=== PATIENT | male | born 1975 | race Caucasian/White ===

== ENCOUNTER 2018-01-16 21:02 | Emergency (ER) | payer BC ==
--- NOTE | 2018-01-16 21:51 | ER Document Report ---
ED Medical Screen (RME) - General Chief Complaint: L flank pain/ abdominal pain Stated Complaint: ABDOMINAL PAIN Time Seen by Provider: 01/16/18 21:49 TRAVEL OUTSIDE OF THE [place]. IN LAST 30 DAYS: No - HPI Notes: 01/16/18 21:50 Patient is a 42-year-old male with a history of hypertension, former smoker, right renal cyst versus mass who presents to the ED complaining of right lower quadrant pain 6 hours that has been constant and may radiate around the right hip area towards his back. Patient states that he woke up last night with back pain, left flank pain, and hematuria. Patient states that he was at [facility] emergency department this morning and had a CT scan performed that was reported to be unremarkable per patient. Patient states that he did have a pain similar to this 2 years ago in the same area. No other concerns or complaints. He is still eating and drinking without any difficulties. He is urinating normally and having normal bowel movement. Denies any headache, fever, URI, sore throat , chest pain, palpitations, syncope, cough, shortness of breath, wheeze, dyspnea , nausea/vomiting/diarrhea, urinary retention, dysuria, continued hematuria, loss of control of bowel or bladder, numbness/tingling, saddle anesthesia, muscle paralysis/weakness, or rash. I have treated and performed a rapid initial assessment of this patient. A comprehensive ED assessment and evaluation of the patient, analysis of test results and completion of medical decision making process will be conducted by additional ED providers. PHYSICAL EXAMINATION: GENERAL: Well-appearing, well-nourished and in no acute distress. A&Ox4. Answers questions appropriately. LUNGS: Breath sounds clear to auscultation bilaterally and equal. No wheezes rales or rhonchi. HEART: Regular rate and rhythm without murmurs, rubs, gallops. Abd: bowel sounds present. unable to adequately assess with pt in a chair. Extremities: No cyanosis, clubbing, or edema b/l. NEUROLOGICAL: Normal speech, normal gait. PSYCH: Normal mood, normal affect. - Related Data Allergies/Adverse Reactions: Penicillins Allergy (Severe, Verified 12/21/15 11:12) Anaphylaxis all "cillians" Allergy (Severe, Uncoded 12/21/15 11:12) Anaphylaxis Past Medical History - Past Medical History Cardiac Medical History: Reports: Hx Hypertension - borderline Denies: Hx Coronary Artery Disease, Hx Heart Attack Pulmonary Medical History: Denies: Hx Asthma, Hx Bronchitis, Hx COPD, Hx Pneumonia Neurological Medical History: Denies: Hx Cerebrovascular Accident, Hx Seizures Musculoskeltal Medical History: Denies Hx Arthritis, Reports Hx Musculoskeletal Deformity, Reports Hx Musculoskeletal Trauma Past Surgical History: Reports: Hx Orthopedic Surgery - knee x3 - Immunizations Immunizations up to date: Yes Hx Diphtheria, Pertussis, Tetanus Vaccination: No Physical Exam - Vital signs Vitals: Temp Pulse Resp BP Pulse Ox 97.8 F 78 18 162/111 H 96 01/16/18 21:37 01/16/18 21:37 01/16/18 21:37 01/16/18 21:37 01/16/18 21:37 Course - Vital Signs Vital signs: Temp Pulse Resp BP Pulse Ox 97.8 F 78 18 162/111 H 96 01/16/18 21:37 01/16/18 21:37 01/16/18 21:37 01/16/18 21:37 01/16/18 21:37
[2018-01-16] MEDS ORDERED: KETOROLAC TROMETHAMINE INJ/PF 30 MG/1 ML SDV IV ONE (22:10)
[2018-01-16 23:02] LABS: ABSOLUTE BASOPHILS # (AUTO) 0.1 10^3/uL (0.0-0.2); ABSOLUTE EOSINOPHILS # (AUTO) 0.4 10^3/uL (0.0-0.6); ABSOLUTE LYMPHOCYTES (AUTO) 2.5 10^3/uL (0.5-4.7); ABSOLUTE NEUT (AUTO) 9.9 10^3/uL (1.7-8.2); EOSINOPHILS % (AUTO) 2.8 % (0-6); HEMOGLOBIN 16.3 g/dL (13.5-17.0); LYMPHOCYTES % (AUTO) 18.3 % (13-45); MEAN CORPUSCULAR HEMOGLOBIN 28.1 pg (27.0-33.4); MEAN CORPUSCULAR HGB CONC 33.9 g/dL (32.0-36.0); MEAN CORPUSCULAR VOLUME 83 fl (80-97); MONOCYTES % (AUTO) 7.2 % (3-13); PLATELET COUNT 294 10^3/uL (150-450); RED CELL DISTRIBUTION WIDTH 13.1 % (11.5-14.0); SEGMENTED NEUTROPHILS % (AUTO) 70.7 % (42-78); TOTAL CELLS COUNTED % (AUTO) 100 %
[2018-01-16 23:14] LABS: ALANINE AMINOTRANSFERASE 62 U/L (21-72); ALBUMIN 4.8 g/dL (3.5-5.0); ALKALINE PHOSPHATASE 80 U/L (38-126); ANION GAP 15 (5-19); ASPARTATE AMINO TRANSFERASE 36 U/L (17-59); BILIRUBIN,DIRECT 0.3 mg/dL (0.0-0.4); BILIRUBIN,TOTAL 0.4 mg/dL (0.2-1.3); BLOOD UREA NITROGEN 26 mg/dL (7-20); CARBON DIOXIDE 25 mmol/L (22-30); CHLORIDE 103 mmol/L (98-107); GLUCOSE 135 mg/dL (75-110); POTASSIUM 4.2 mmol/L (3.6-5.0); SODIUM 142.6 mmol/L (137-145); TOTAL PROTEIN 7.2 g/dL (6.3-8.2)
[2018-01-16 23:47] LABS: APPEARANCE,URINE CLEAR; BILIRUBIN,URINE NEGATIVE (NEGATIVE); CALCIUM OXALATE CRYSTALS,URINE MODERATE /HPF; COLOR,URINE YELLOW; GLUCOSE, URINE NEGATIVE (NEGATIVE); KETONES,URINE NEGATIVE (NEGATIVE); LEUKOCYTE ESTERASE,URINE NEGATIVE (NEGATIVE); NITRITE,URINE NEGATIVE (NEGATIVE); PROTEIN,URINE NEGATIVE (NEGATIVE); URINE SPECIFIC GRAVITY 1.015; UROBILINOGEN,URINE NEGATIVE mg/dL (<2.0)
[2018-01-16] MEDS ORDERED: KETOROLAC TROMETHAMINE INJ/PF 30 MG/1 ML SDV IM ONE (23:50)
--- NOTE | 2018-01-17 00:57 | ER Document Report ---
ED General <YEIMI MURRAY - Last Filed: 01/17/18 02:15> - General Mode of Arrival: Ambulatory Information source: Patient TRAVEL OUTSIDE OF THE [place] IN LAST 30 DAYS: No <FILIPEFRANK CARTWRIGHT - Last Filed: 01/17/18 05:26> - General Chief Complaint: L flank pain/ abdominal pain Stated Complaint: ABDOMINAL PAIN Time Seen by Provider: 01/16/18 21:49 Notes: Patient is a 42 year old male with a history of hypertension, right renal cyst versus mass presents to the emergency department complaining of right lower quadrant pain onset approximately 8 hours ago. Patient states the pain has been constant and radiates into the right side of his lower back. Patient states he woke up with 2 night ago with left flank pain and hematuria and proceeded to go to [place] emergency department due to these symptoms. He reports a CT scan without contrast was performed and was reported unremarkable. Patient states he was then referred to a urologist. Patient denies a history of kidney stones or testicular pain. (FRANK DENT) - Related Data Allergies/Adverse Reactions: Penicillins Allergy (Severe, Verified 12/21/15 11:12) Anaphylaxis all "cillians" Allergy (Severe, Uncoded 12/21/15 11:12) Anaphylaxis Past Medical History - General Information source: Patient - Social History Smoking Status: Former Smoker Cigarette use (# per day): No Chew tobacco use (# tins/day): No Smoking Education Provided: No Frequency of alcohol use: Occasional Family History: Arthritis - Past Medical History Cardiac Medical History: Reports: Hx Hypertension - borderline Musculoskeltal Medical History: Reports Hx Musculoskeletal Deformity, Reports Hx Musculoskeletal Trauma Past Surgical History: Reports: Hx Orthopedic Surgery - knee x3 - Immunizations Immunizations up to date: Yes Hx Diphtheria, Pertussis, Tetanus Vaccination: No <FRANK DENT - Last Filed: 01/17/18 05:26> Review of Systems - Review of Systems Constitutional: No symptoms reported EENT: No symptoms reported Cardiovascular: No symptoms reported Respiratory: No symptoms reported Gastrointestinal: See HPI, Abdominal pain Genitourinary: See HPI, Flank pain, Hematuria Male Genitourinary: No symptoms reported. denies: Testicular pain Musculoskeletal: See HPI Skin: No symptoms reported Hematologic/Lymphatic: No symptoms reported Neurological/Psychological: No symptoms reported -: Yes All other systems reviewed and negative <FRANK DENT - Last Filed: 01/17/18 05:26> Physical Exam - General General appearance: Appears well, Alert In distress: None - HEENT Head: Normocephalic, Atraumatic Eyes: Normal Conjunctiva: Normal Extraocular movements intact: Yes Pupils: PERRL Neck: Normal - Respiratory Respiratory status: No respiratory distress Chest status: Nontender Breath sounds: Normal Chest palpation: Normal - Cardiovascular Rhythm: Regular Heart sounds: Normal auscultation Murmur: No Friction rub: No Gallop: None auscultated - Abdominal Inspection: Normal Distension: No distension Bowel sounds: Normal Tenderness: Tender - Tender to palpation to the right lateral abdomen and RUQ Organomegaly: No organomegaly - Back Back: CVA tenderness - CVA tenderness to percussion on the right - Extremities General upper extremity: Normal ROM General lower extremity: Normal ROM - Neurological Neuro grossly intact: Yes Cognition: Normal Orientation: AAOx4 [place] Coma Scale Eye Opening: Spontaneous Reese Coma Scale Verbal: Oriented [place] Coma Scale Motor: Obeys Commands [place] Coma Scale Total: 15 Speech: Normal - Psychological Associated symptoms: Normal affect, Normal mood - Skin Skin Temperature: Warm Skin Moisture: Dry Skin Color: Normal <FRANK DENT - Last Filed: 01/17/18 05:26> - Vital signs Vitals: Temp Pulse Resp BP Pulse Ox 97.8 F 78 18 162/111 H 96 01/16/18 21:37 01/16/18 21:37 01/16/18 21:37 01/16/18 21:37 01/16/18 21:37 Course - Laboratory Result Diagrams: 01/16/18 22:30 01/16/18 22:30 <YEIMI MURRAY - Last Filed: 01/17/18 02:15> - Laboratory Result Diagrams: 01/16/18 22:30 01/16/18 22:30 <FRANK DENT - Last Filed: 01/17/18 05:26> - Re-evaluation Re-evalutation: 01/17/18 02:15 Patient's medical records were eventually sent from [facility], the CT scan showed a 3-4 mm distal right ureteral stone with hydronephrosis and hydroureter. The patient handed me his discharge instructions which gave a diagnosis of hematuria without explanation. The radiologist report was transcribed less than 40 minutes after the scan was done. Patient reports he got considerable relief of discomfort from the Toradol injection here. He did receive Vicodin dispensed pack and prescription for 10 Percocet this morning, however he states that pain medicine like that makes him feel queasy and he prefers not to take it. He is open to the idea of taking 800 mg Motrin every 8 hours since the Toradol worked so well. (YEIMI MURRAY) - Vital Signs Vital signs: Temp Pulse Resp BP Pulse Ox 98 F 69 16 154/87 H 98 01/17/18 02:35 01/17/18 02:35 01/17/18 02:35 01/17/18 02:35 01/17/18 02:35 - Laboratory Laboratory results interpreted by me: 01/16/18 01/16/18 01/16/18 22:30 22:30 22:30 WBC 14.0 H RBC 5.80 H Absolute Neutrophils 9.9 H BUN 26 H Glucose 135 H Urine Blood LARGE H Discharge <YEIMI MURRAY - Last Filed: 01/17/18 02:15> <FRANK DENT - Last Filed: 01/17/18 05:26> - Discharge Clinical Impression: Renal colic on right side Condition: Stable Disposition: HOME, SELF-CARE Additional Instructions: Kidney Stone You are passing or have passed a kidney stone. These stones are usually due to increased calcium or uric acid concentrations in your urine. Stones within the kidney itself are not painful. The pain occurs as the stone leaves the kidney to pass down the long tube, called the ureter, leading to the bladder. If the stone is small, it will usually pass by itself. Most patients can pass the stone at home. You will usually receive medications for pain, nausea or vomiting, and sometimes a medication to assist in passing the kidney stone. However, if the pain is very severe or if vomiting prevents you from taking oral pain medications, you may need to return for further treatment. Drink three or four quarts of fluids per day. You will be given pain medication (if needed) and urine strainers. Strain all your urine to see if the stone passes. If your doctor has asked you to bring the stone in for analysis, return with the stone once it has passed. Return if pain or vomiting become severe, if you develop a high fever, if you are unable to pass your urine, or if other unusual symptoms occur. Take Motrin 800 mg every 8 hours for pain. Take your prescribed pain medication if the pain is not controlled. Take the Flomax as prescribed to see if it will help you pass the stone. Drink lots of fluids throughout the day and evening. Strain your urine. Follow-up with the urologist you were referred to on [facility]. RETURN TO THE EMERGENCY ROOM IF ANY NEW OR WORSENING SYMPTOMS. Prescriptions: Tamsulosin HCl [Flomax 0.4 mg Cap.sr] 0.4 mg PO DAILY #7 cap.sr.[id number] Scribe Attestation: 01/17/18 01:36 I personally performed the services described in the documentation, reviewed and edited the documentation which was dictated to the scribe in my presence, and it accurately records my words and actions. (YEIMI MURRAY) Scribe Documentation - Scribe Written by Shailesh:: Shailesh Painting, 01/17/2018 01:00 acting as scribe for :: Maximo <FRANK DENT - Last Filed: 01/17/18 05:26>
[2018-01-17] MEDS ORDERED: TAMSULOSIN HCL 0.4 MG CAP.SR.24H PO ONE (02:19)
[2018-01-17 03:47] VITALS: BP 154/87
== END 2018-01-17 02:35 | disposition home or self-care (01) ==
LOC: ER 21:02
DX: N23 Unspecified renal colic (principal); I10 Essential (primary) hypertension; Z87.891 Personal history of nicotine dependence; Z88.0 Allergy status to penicillin
CPT/HCPCS: 99284; 96372; 36415; 85025; 80053; 81001; J1885

== ENCOUNTER 2020-05-08 06:08 | Observation (INO) | payer BC, OTHER ==
[2020-05-08 06:33] LABS: ABSOLUTE BASOPHILS # (AUTO) 0.1 10^3/uL (0.0-0.2); ABSOLUTE EOSINOPHILS # (AUTO) 0.2 10^3/uL (0.0-0.6); ABSOLUTE LYMPHOCYTES (AUTO) 1.5 10^3/uL (0.5-4.7); ABSOLUTE MONOCYTES (AUTO) 0.5 10^3/uL (0.1-1.4); ABSOLUTE NEUT (AUTO) 6.3 10^3/uL (1.7-8.2); BASOPHILS % (AUTO) 1.3 % (0-2); EOSINOPHILS % (AUTO) 2.7 % (0-6); HEMATOCRIT 45.3 % (37.9-51.0); HEMOGLOBIN 15.6 g/dL (13.5-17.0); LYMPHOCYTES % (AUTO) 17.5 % (13-45); MEAN CORPUSCULAR HEMOGLOBIN 28.8 pg (27.0-33.4); MEAN CORPUSCULAR HGB CONC 34.4 g/dL (32.0-36.0); MEAN CORPUSCULAR VOLUME 84 fl (80-97); MONOCYTES % (AUTO) 5.9 % (3-13); PLATELET COUNT 248 10^3/uL (150-450); RED BLOOD COUNT 5.41 10^6/uL (4.35-5.55); RED CELL DISTRIBUTION WIDTH 13.5 % (11.5-14.0); SEGMENTED NEUTROPHILS % (AUTO) 72.6 % (42-78); TOTAL CELLS COUNTED % (AUTO) 100 %; WHITE BLOOD COUNT 8.7 10^3/uL (4.0-10.5)
[2020-05-08] MEDS ORDERED: RINGERS SOLUTION,LACTATED 1,000 ML IV ONE (06:51)
[2020-05-08] MEDS ORDERED: HYDROMORPHONE HCL INJ/PF 2 MG/ML AMPULE IV ONE (06:53)
[2020-05-08] MEDS ORDERED: ONDANSETRON HCL INJ/PF 4 MG/2 ML SDV IV ONE (06:53)
[2020-05-08 06:57] LABS: ALBUMIN 4.4 g/dL (3.5-5.0); ALKALINE PHOSPHATASE 70 U/L (38-126); ANION GAP 8 (5-19); ASPARTATE AMINO TRANSFERASE 28 U/L (17-59); BILIRUBIN,DIRECT 0.3 mg/dL (0.0-0.4); BILIRUBIN,TOTAL 0.5 mg/dL (0.2-1.3); BLOOD UREA NITROGEN 20 mg/dL (7-20); CALCIUM 9.4 mg/dL (8.4-10.2); CARBON DIOXIDE 26 mmol/L (22-30); CHLORIDE 105 mmol/L (98-107); GLUCOSE 187 mg/dL (75-110); POTASSIUM 4.2 mmol/L (3.6-5.0); TOTAL PROTEIN 6.7 g/dL (6.3-8.2)
[2020-05-08 07:11] LABS: TROPONIN I < 0.012 ng/mL
[2020-05-08 07:26] LABS: NT PRO BNP 38 pg/mL (<125)
--- NOTE | 2020-05-08 09:19 | ER Document Report ---
Entered by HONG GASCA SCRIBE 05/08/20 0639 Acting as scribe for:RACHEL WEI MD ED General - General Stated Complaint: DIFFICULT IN BREATHING Time Seen by Provider: 05/08/20 06:15 Mode of Arrival: Medic Information source: Patient, Emergency Med Personnel Notes: This 44 year old male patient brought in by EMS presents to the ED today with complaints of left-sided chest pain with associated shortness of breath that woke him up around 0400 this morning. Patient describes the pain as a pressure that radiates to his back. He also reports bilateral upper abdominal pain with nausea and x1 episode of dry heaving. Patient states that the pain persisted after he took a shower, so he called EMS. Patient received x2 sprays of Nitroglycerin and was started on a Nitro gtt at 10 mcg/min without pain relief. Patient was also placed on CPAP. Patient reports that he had a cardiac workup about x2 months ago and had a negative echo and stress test. He also had a gallbladder work up about x1 year ago and was told that it was nonsurgical. Patient is a former smoker and has a history of HTN. He his medically noncompliant with his blood pressure medications (Metoprolol and Losartan), last dose was x2 days ago. TRAVEL OUTSIDE OF THE [place] IN LAST 30 DAYS: No - Related Data Allergies/Adverse Reactions: Penicillins Allergy (Severe, Verified 12/21/15 11:12) Anaphylaxis all "cillians" Allergy (Severe, Uncoded 12/21/15 11:12) Anaphylaxis Past Medical History - General Information source: Patient, [facility] Records - Social History Smoking Status: Former Smoker Cigarette use (# per day): No Chew tobacco use (# tins/day): No Smoking Education Provided: No Frequency of alcohol use: None Drug Abuse: None Family History: Reviewed & Not Pertinent, Arthritis, CAD Patient has suicidal ideation: No Patient has homicidal ideation: No - Past Medical History Cardiac Medical History: Reports: Hx Hypertension - borderline Musculoskeletal Medical History: Reports Hx Musculoskeletal Deformity, Reports Hx Musculoskeletal Trauma Past Surgical History: Reports: Hx Orthopedic Surgery - right knee x3, right shoulder - Immunizations Immunizations up to date: Yes Hx Diphtheria, Pertussis, Tetanus Vaccination: No Review of Systems - Review of Systems Constitutional: No symptoms reported EENT: No symptoms reported Cardiovascular: See HPI, Chest pain Respiratory: See HPI, Short of breath Gastrointestinal: See HPI, Abdominal pain, Nausea, Vomiting Genitourinary: No symptoms reported Male Genitourinary: No symptoms reported Musculoskeletal: No symptoms reported Skin: No symptoms reported Hematologic/Lymphatic: No symptoms reported Neurological/Psychological: No symptoms reported -: Yes All other systems reviewed and negative Physical Exam - Vital signs Vitals: Resp Pulse Ox 25 H 100 05/08/20 06:08 05/08/20 06:08 - General General appearance: Alert In distress: Mild - HEENT Head: Normocephalic, Atraumatic Eyes: Normal Extraocular movements intact: Yes Pupils: PERRL Ears: Normal Mouth/Lips: Normal Mucous membranes: Normal Pharynx: Normal - Respiratory Respiratory status: No respiratory distress - 100% on 2L via NC Chest status: Nontender Breath sounds: Normal Chest palpation: Normal - Cardiovascular Rhythm: Regular Heart sounds: Normal auscultation, S1 appreciated, S2 appreciated Murmur: No Friction rub: No Gallop: None auscultated - Abdominal Inspection: Obese Distension: No distension Bowel sounds: Normal Tenderness: Tender - Bilateral upper quadrant tenderness to palpation, right worse than left, Mitchell's sign Organomegaly: No organomegaly - Back Back: Normal, Nontender - Extremities General upper extremity: Normal inspection General lower extremity: Normal inspection. No: Edema - Neurological Neuro grossly intact: Yes Orientation: AAOx4 Reese Coma Scale Eye Opening: Spontaneous [place] Coma Scale Verbal: Oriented Reese Coma Scale Motor: Obeys Commands [place] Coma Scale Total: 15 - Psychological Associated symptoms: Normal affect, Normal mood - Skin Skin Temperature: Warm Skin Moisture: Dry Skin Color: Normal Course - Re-evaluation Re-evalutation: 05/08/20 14:54 Patient resting comfortably after medications for pain. - Vital Signs Vital signs: Temp Pulse Resp BP Pulse Ox 98.0 F 64 12 148/81 H 97 05/08/20 06:21 05/08/20 06:21 05/08/20 12:59 05/08/20 12:00 05/08/20 12:59 05/08/20 14:55 Vital signs improved see chart above blood pressure is 148/81. - Laboratory Result Diagrams: 05/08/20 06:17 05/08/20 06:17 Laboratory results interpreted by me: 05/08/20 06:17 Glucose 187 H Laboratories except for glucose of 187 did not show any remarkable elevations troponin was flat at 0.122. Patient had normal CBC and in chemistries. 05/08/20 1 - Diagnostic Test Radiology reviewed: Reports reviewed Radiology results interpreted by me: 05/08/20 11:15 Gallbladder U/S reveals adenomyonatosis without any gallstones, thickened gallbladder wall, and possible acalculous cholecystitis. CT of the abdomen/pelvis reveals acute cholecystitis and gallstones, which was not seen on the [place] 05/08/20 14:57 Chest x-ray shows no acute process crowding in the bases bilateral consistent with low diaphragmatic excursion with his deep breath. - EKG Interpretation by Me Additional EKG results interpreted by me: 05/08/20 14:58 Twelve-lead EKG shows an old inferior SC with Q waves. Sinus bradycardia rate of 47 with - Consults Oswaldo Miranda Time consulted: 11:26 Reason for consultation: 05/08/20 11:27 Acute cholecystitis with gallstones Consulted provider: will come to ER Discharge - Discharge Clinical Impression: Nausea, Acute calculous cholecystitis Abdominal pain Qualifiers: Abdominal location: right upper quadrant Qualified Code(s): R10.11 - Right upper quadrant pain Chest pain Qualifiers: Chest pain type: unspecified Qualified Code(s): R07.9 - Chest pain, unspecified Condition: Good Disposition: ADMITTED INPATIENT Admitting Provider: Miyaist Urvashi Miranda Unit Admitted: Surgical Floor I personally performed the services described in the documentation, reviewed and edited the documentation which was dictated to the scribe in my presence, and it accurately records my words and actions.
[2020-05-08 10:19] LABS: APPEARANCE,URINE CLEAR; BILIRUBIN,URINE NEGATIVE (NEGATIVE); COLOR,URINE YELLOW; GLUCOSE, URINE NEGATIVE (NEGATIVE); KETONES,URINE NEGATIVE (NEGATIVE); LEUKOCYTE ESTERASE,URINE NEGATIVE (NEGATIVE); NITRITE,URINE NEGATIVE (NEGATIVE); PROTEIN,URINE NEGATIVE (NEGATIVE); URINE SPECIFIC GRAVITY 1.023; UROBILINOGEN,URINE NEGATIVE mg/dL (<2.0)
[2020-05-08 10:49] LABS: URINE AMPHETAMINES SCREEN NEGATIVE; URINE BARBITURATES SCREEN NEGATIVE; URINE BENZODIAZEPINES SCREEN NEGATIVE; URINE COCAINE SCREEN NEGATIVE; URINE MARIJUANA (THC) SCREEN NEGATIVE; URINE METHADONE SCREEN NEGATIVE; URINE PHENCYCLIDINE SCREEN NEGATIVE
--- NOTE | 2020-05-08 15:31 | EKG REPORT ---
SEVERITY:- ABNORMAL ECG - SINUS BRADYCARDIA PROBABLE INFERIOR INFARCT, OLD : Confirmed by: Shan Esqueda MD 08-May-2020 15:30:34
[2020-05-08] MEDS ORDERED: DEXTROSE 50%-WATER 25 GM/50 ML DISP.SYRIN IV PRN ×2 (15:54)
[2020-05-08] MEDS ORDERED: DEXTROSE 5%-LACTATED RINGERS 1,000 ML IV PRN (15:54)
[2020-05-08] MEDS ORDERED: DEXTROSE 40% GEL 15 GM TUBE PO PRN ×2 (15:54)
[2020-05-08] MEDS ORDERED: GLUCAGON,HUMAN RECOMB 1 MG INJ SUBCUT PRN (15:54)
--- NOTE | 2020-05-08 16:05 | PDOC H&P ---
History of Present Illness Admission Date/PCP: 05/08/20 11:56 Patient complains of: Abdominal pains History of Present Illness: WALLACE RODRIGUEZ is a 44 year old male with history of hypertension woke up this morning at 4 AM with severe right upper quadrant pains radiating to the back associated nausea. He went to ED where CT scan of the abdomen showed gallstones and ultrasound also showed gallstones. No definite evidence of cholecystitis. Patient however has severe right upper quadrant abdominal pains with elevated white count. Denies any fever no chills. He did have baked chicken for dinner which he thinks was not that greasy. Past Medical History Cardiac Medical History: Reports: Hypertension - borderline Denies: Coronary Artery Disease, Myocardial Infarction Pulmonary Medical History: Denies: Asthma, Bronchitis, Chronic Obstructive Pulmonary Disease (COPD), Pneumonia Neurological Medical History: Denies: Seizures Musculoskeltal Medical History: Denies: Arthritis Psychiatric Medical History: Denies: Depression Hematology: Denies: Anemia Past Surgical History Past Surgical History: Reports: Orthopedic Surgery - right knee x3, right shoulder Social History Smoking Status: Former Smoker Electronic Cigarette use?: No Frequency of Alcohol Use: Rare Hx Recreational Drug Use: No Hx Prescription Drug Abuse: No Family History Family History: Reviewed & Not Pertinent, Arthritis, CAD Parental Family History Reviewed: Yes Children Family History Reviewed: No Sibling(s) Family History Reviewed.: No Medication/Allergy Home Medications: Losartan/Hydrochlorothiazide [Losartan-Hctz 50-12.5 mg Tab] 1 tab PO DAILY 05/08/20 Metoprolol Tartrate [Lopressor 50 mg Tablet] 50 mg PO Q12 05/08/20 Allergies/Adverse Reactions: Penicillins Allergy (Severe, Verified 12/21/15 11:12) Anaphylaxis all "cillians" Allergy (Severe, Uncoded 12/21/15 11:12) Anaphylaxis Review of Systems Constitutional: PRESENT: other - Denies fever no chills Physical Exam Vital Signs: Temp Pulse Resp BP Pulse Ox 98.0 F 64 12 148/81 H 97 05/08/20 06:21 05/08/20 06:21 05/08/20 12:59 05/08/20 12:00 05/08/20 12:59 Intake & Output 05/07/20 05/08/20 05/09/20 06:59 06:59 06:59 Intake Total 1000 Balance 1000 Weight 108.862 kg General appearance: PRESENT: mild distress, obese Eye exam: PRESENT: conjunctiva pink Mouth exam: PRESENT: moist Neck exam: PRESENT: full ROM Respiratory exam: PRESENT: clear to auscultation krystal Cardiovascular exam: PRESENT: RRR Pulses: PRESENT: normal radial pulses Vascular exam: PRESENT: normal capillary refill GI/Abdominal exam: PRESENT: soft, tenderness - Right upper quadrant Rectal exam: PRESENT: deferred Extremities exam: PRESENT: full ROM Musculoskeletal exam: PRESENT: full ROM Neurological exam: PRESENT: alert, oriented to person, oriented to place, oriented to time, oriented to situation Psychiatric exam: PRESENT: appropriate affect Skin exam: PRESENT: normal color, warm Results Laboratory Results: 05/08/20 06:17 05/08/20 06:17 05/08/20 05/08/20 05/08/20 06:17 06:17 06:17 WBC 8.7 RBC 5.41 Hgb 15.6 Hct 45.3 MCV 84 MCH 28.8 MCHC 34.4 RDW 13.5 Plt Count 248 Seg Neutrophils % 72.6 Sodium 138.9 Potassium 4.2 Chloride 105 Carbon Dioxide 26 Anion Gap 8 BUN 20 Creatinine 0.82 Est GFR ( Amer) > 60 Glucose 187 H Lactic Acid Calcium 9.4 Total Bilirubin 0.5 AST 28 Alkaline Phosphatase 70 Total Protein 6.7 Albumin 4.4 Amylase Lipase 100.6 Urine Color Urine Appearance Urine pH Ur Specific [place] Urine Protein Urine Glucose (UA) Urine Ketones Urine Blood Urine Nitrite Ur Leukocyte Esterase Urine WBC (Auto) Urine RBC (Auto) 05/08/20 05/08/20 05/08/20 06:17 06:42 10:04 WBC RBC Hgb Hct MCV MCH MCHC RDW Plt Count Seg Neutrophils % Sodium Potassium Chloride Carbon Dioxide Anion Gap BUN Creatinine Est GFR ( Amer) Glucose Lactic Acid 1.1 Calcium Total Bilirubin AST Alkaline Phosphatase Total Protein Albumin Amylase 50 Lipase Urine Color YELLOW Urine Appearance CLEAR Urine pH 5.0 Ur Specific [place] 1.023 Urine Protein NEGATIVE Urine Glucose (UA) NEGATIVE Urine Ketones NEGATIVE Urine Blood NEGATIVE Urine Nitrite NEGATIVE Ur Leukocyte Esterase NEGATIVE Urine WBC (Auto) 2 Urine RBC (Auto) 0 05/08/20 05/08/20 06:17 10:04 Troponin I < 0.012 < 0.012 NT-Pro-B Natriuret Pep 38 Assessment & Plan - Diagnosis (1) Abdominal pain Qualifiers: Abdominal location: right upper quadrant Qualified Code(s): R10.11 - Right upper quadrant pain Is this a current diagnosis for this admission?: Yes (2) Acute calculous cholecystitis Is this a current diagnosis for this admission?: Yes (3) Nausea Is this a current diagnosis for this admission?: Yes - Time Time Spent: 30 to 50 Minutes Anticipated Discharge Disposition: Home, Self Care Anticipated Discharge Timeframe: within 72 hours - Inpatient Certification Medical Necessity: Need for Pain Control, Need for IV Antibiotics, Need for Surgery - Plan Summary Plan Summary: 44-year-old male with right upper quadrant pain since 4:00 this morning associated with nausea. CT scan showed gallstones as well as an ultrasound. His white count was elevated and is tender in the right upper quadrant. There is a history of hypertension on losartan and metoprolol. He is being followed by Dr. Benson. Plans: Start IV antibiotics and hydrate. For laparoscopic cholecystectomy tomorrow by Dr. Fabian.
[2020-05-08] MEDS ORDERED: HYDROMORPHONE HCL INJ/PF 2 MG/ML AMPULE IV PRN (16:14)
[2020-05-08] MEDS: CIPROFLOXACIN 400 MG/D5W RTU 400 MG/200 ML RTUPB IV SCH (17:35)
--- NOTE | 2020-05-08 17:42 | RADIOLOGY REPORT (SQ) ---
COMPLETED DATE/TME: 05/08/2020 00:00 CLINICAL HISTORY: 44 years, Male, ruq pain, radiating to back EXAM: CT abdomen and pelvis with contrast. TECHNIQUE: Contiguous axial CT images of the abdomen and pelvis. Intravenous contrast: Present. Oral contrast: Present. DLP 2010 mGy-cm. This exam was performed according to our departmental dose-optimization program, which includes automated exposure control, adjustment of the mA and/or kV according to patient size and/or use of iterative reconstruction technique. COMPARISON: 12/19/2015. FINDINGS: Lower chest: Partially imaged. Lung bases: Unremarkable. Cardiac apex: Unremarkable. Solid abdominal viscera: Liver: Fatty infiltration. Gallbladder: Contains two stones near the gallbladder neck which measure up to 5 mm in size and a 4 mm stone within the cystic duct. The gallbladder brooks appear hyperemic and thickened with mild adjacent stranding. Pancreas: Unremarkable. Spleen: Unremarkable. Adrenal glands: Unremarkable. Right kidney: No hydronephrosis. 1 cm cyst. Left kidney: No hydronephrosis. 1.3 cm cyst. Urinary bladder: Unremarkable. Abdominal aorta: Unremarkable. Peritoneal: Free fluid: None. Free air: None. Other: No pathologic sized lymph nodes in the upper abdomen. Bowel: Stomach: Unremarkable. Small bowel: Unremarkable. Appendix: Unremarkable. Colon: Unremarkable. Rectum: Unremarkable. Prostate: Unremarkable. Bones: Unremarkable. IMPRESSION: Acute calculus cholecystitis with a 4 mm stone near the cystic duct. Fatty liver. TECHNICAL DOCUMENTATION: Quality ID # 436: Final reports with documentation of one or more dose reduction techniques (e.g., Automated exposure control, adjustment of the mA and/or kV according to patient size, use of iterative reconstruction technique) copyright 2011 [employer]- All Rights Reserved
--- NOTE | 2020-05-08 17:52 | RADIOLOGY REPORT (SQ) ---
EXAM DESCRIPTION: [facility]: XR CHEST 1 VIEW CLINICAL HISTORY: 44 years Male; chest pain; COMPARISON: None. FINDINGS: Lungs: Lungs are clear, with no focal infiltrate, pneumothorax, or pleural effusion. Mediastinum: Mediastinum is within normal limits for this positioning. Bones: Bony structures are unremarkable. IMPRESSION: 1. No acute pulmonary findings.
[2020-05-08] MEDS ORDERED: PIPERACILLIN SODIUM/TAZOBACTAM 3.375 GM in NORMAL SALINE 100 ML IV SCH (18:00)
--- NOTE | 2020-05-08 18:00 | RADIOLOGY REPORT (SQ) ---
EXAM DESCRIPTION: [facility]: XR CHEST 1 VIEW CLINICAL HISTORY: 44 years Male; shortness of breath; FINDINGS: AP chest at 0756. Since earlier this morning at 0655, lungs remain well-inflated. No focal consolidation, effusion, or pneumothorax. Mediastinum is unchanged. IMPRESSION: 1. No significant change 2. No focal infiltrates
[2020-05-08] MEDS: METRONIDAZOLE 500 MG/NS RTU 500 MG/100 ML RTUPB IV SCH (23:10)
[2020-05-09] MEDS: METRONIDAZOLE 500 MG/NS RTU 500 MG/100 ML RTUPB IV SCH ×2 (05:14→14:36)
[2020-05-09] MEDS: CIPROFLOXACIN 400 MG/D5W RTU 400 MG/200 ML RTUPB IV SCH ×2 (05:14→18:24)
[2020-05-09] MEDS ORDERED: BUPIVACAINE HCL 0.5%-EPI 1:200000 INJ/PF 30 ML VIAL ONE (07:48)
[2020-05-09] MEDS ORDERED: MORPHINE SULFATE 10 MG/ML INJ ONE (07:51)
[2020-05-09] MEDS ORDERED: FENTANYL CITRATE INJ/PF 100 MCG/2 ML AMPUL ONE (07:51)
[2020-05-09] MEDS ORDERED: PROPOFOL INJ 200 MG/20 ML VIAL IV ONE (07:51)
[2020-05-09] MEDS ORDERED: DEXMEDETOMIDINE INJ 80 MCG/20 ML VIAL IV ONE (07:51)
[2020-05-09] MEDS ORDERED: SUGAMMADEX SODIUM 200 MG/2 ML SDV IV ONE (07:51)
[2020-05-09] MEDS ORDERED: MIDAZOLAM 2 MG/2 ML INJ ONE (07:51)
[2020-05-09] MEDS ORDERED: LIDOCAINE 2% INJ-PF (20 MG/ML) 10 ML AMPUL ONE (07:53)
[2020-05-09] MEDS ORDERED: SUCCINYLCHOLINE CHLORIDE INJ 200 MG/10 ML VIAL ONE (08:07)
[2020-05-09] MEDS ORDERED: NEOSTIGMINE METHYLSULFATE 10 MG/10 ML VIAL ONE (08:07)
[2020-05-09] MEDS ORDERED: GLYCOPYRROLATE 1 MG/5 ML VIAL ONE (08:07)
[2020-05-09] MEDS ORDERED: LIDOCAINE 2% INJ-PF (20 MG/ML) 2 ML AMPUL ONE (08:07)
[2020-05-09] MEDS ORDERED: ONDANSETRON HCL INJ/PF 4 MG/2 ML SDV ONE (08:07)
[2020-05-09] MEDS ORDERED: KETOROLAC TROMETHAMINE 60 MG/2 ML SDV ONE (08:07)
[2020-05-09] MEDS ORDERED: ROCURONIUM BROMIDE INJ 50 MG/5 ML VIAL IV ONE (08:07)
--- NOTE | 2020-05-09 08:11 | PDOC PROGRESS REPORT ---
Subjective Progress Note for:: 05/09/20 Subjective:: c/ RUQ pain x 1 day Reason For Visit: ACUTE CALCULUS CHOLECYSTITIS, CHOLELITHIASIS, Physical Exam Vital Signs: Temp Pulse Resp BP Pulse Ox 97.7 F 62 12 140/81 H 98 05/08/20 23:38 05/08/20 23:38 05/08/20 23:38 05/08/20 23:38 05/08/20 23:38 Intake & Output 05/08/20 05/09/20 05/10/20 06:59 06:59 06:59 Intake Total 2864 Balance 2864 Weight 108.862 kg 108 kg General appearance: PRESENT: no acute distress, obese GI/Abdominal exam: PRESENT: soft, tenderness - RUQ Results Laboratory Results: 05/08/20 06:17 05/08/20 06:17 05/08/20 10:04 Urine Color YELLOW Urine Appearance CLEAR Urine pH 5.0 Ur Specific [place] 1.023 Urine Protein NEGATIVE Urine Glucose (UA) NEGATIVE Urine Ketones NEGATIVE Urine Blood NEGATIVE Urine Nitrite NEGATIVE Ur Leukocyte Esterase NEGATIVE Urine WBC (Auto) 2 Urine RBC (Auto) 0 05/08/20 05/08/20 06:17 10:04 Troponin I < 0.012 < 0.012 NT-Pro-B Natriuret Pep 38 Impressions: Abdomen/Pelvis CT 05/08/20 00:00 IMPRESSION: Acute calculus cholecystitis with a 4 mm stone near the cystic duct. Fatty liver. TECHNICAL DOCUMENTATION: Quality ID # 436: Final reports with documentation of one or more dose reduction techniques (e.g., Automated exposure control, adjustment of the mA and/or kV according to patient size, use of iterative reconstruction technique) copyright 2011 [employer]- All Rights Reserved Chest X-Ray 05/08/20 06:20 IMPRESSION: 1. No acute pulmonary findings. Assessment & Plan - Time Anticipated Discharge Disposition: Home, Self Care Anticipated Discharge Timeframe: within 24 hours - Plan Summary Plan Summary: Assessment: Acute calculus cholecystitis Blood work within normal limits except for slight elevated alkaline phosphatase CT scan abdomen pelvis significant for acute cholecystitis with a single stone in the body cystic duct Physical exam demonstrates a right upper quadrant pain Plan: Laparoscopic cystectomy possible open possible cholangiogram Procedure, risks, benefits, complications, including injury to the bile duct which may require transfer to tertiary center, bleeding from the liver which may require open procedure, pneumonia, wound infection, DVT and pulmonary embolus, and have been discussed with the patient at length. His questions were answered to his satisfaction, he desires to proceed.
[2020-05-09] MEDS ORDERED: MORPHINE SULFATE 10 MG/ML INJ IV PRN (08:57)
[2020-05-09] MEDS ORDERED: MEPERIDINE HCL/PF INJ 25 MG/1 ML DISP.SYRIN IV PRN (08:57)
[2020-05-09] MEDS ORDERED: ONDANSETRON HCL INJ/PF 4 MG/2 ML SDV IV PRN ×2 (08:57→09:51)
[2020-05-09] MEDS ORDERED: FENTANYL CITRATE INJ/PF 100 MCG/2 ML AMPUL IV PRN ×3 (08:57)
[2020-05-09] MEDS ORDERED: DIPHENHYDRAMINE HCL 50 MG/ML VIAL IV PRN (08:57)
[2020-05-09] MEDS ORDERED: PROMETHAZINE HCL INJ 25 MG/1 ML VIAL IV PRN (08:57)
[2020-05-09] MEDS ORDERED: OXYCODONE-ACETAMINOPHEN 5-325 MG TABLET PO PRN ×2 (08:57)
[2020-05-09] MEDS ORDERED: NORMAL SALINE 1000 ML 1,000 ML IV PRN (09:51)
--- NOTE | 2020-05-09 09:51 | Operative Report ---
Operative Report DATE OF SURGERY: 05/09/20 PREOPERATIVE DIAGNOSIS: Acute calculus cholecystitis POSTOPERATIVE DIAGNOSIS: Same OPERATION: Laparoscopic cholecystectomy SURGEON: DARRYL PALMER ANESTHESIA: GA - -30 mils of half percent Marcaine without epinephrine TISSUE REMOVED OR ALTERED: Gallbladder COMPLICATIONS: None ESTIMATED BLOOD LOSS: 20 mils INTRAOPERATIVE FINDINGS: Cholelithiasis and acutely inflamed gallbladder PROCEDURE: The procedure was done in the operating room. The patient was placed in a supine position, general anesthesia induced by endotracheal intubation, the abdomen was prepped and draped in usual fashion. An incision was made just above the umbilicus with a #15 blade, the skin was tented with towel clips and a 5 mm port with Optiview adapter and scope was inserted through the abdominal wall into the peritoneal cavity. CO2 pneumoperitoneum was obtained, under direct visualization a 12 mm port was inserted in the epigastrium and two 5 mm ports were placed in the right lateral quadrant of the abdomen under direct visualization. The patient was placed in steep reverse Trendelenburg position, the right side was elevated, the gallbladder fundus was grasped and the gallbladder was elevated and retroflexed; the cystic neck was identified, grasped, and pulled anterior to the patient's right with exposure of the triangle of Calot. The critical view of safety was obtained by dividing the peritoneal attachments of the gallbladder body both medially and laterally with a hook cautery. When this was accomplished, the hook cautery dissection was continued toward the cystic neck. An opening was then obtained posterior to the cystic duct which was enlarged with a peanut dissector and with a right angle dissector. Once the critical view of safety was obtained, the cystic duct was carefully dissected with a hook cautery and a space was developed between the cystic duct and cystic artery with a right angle dissector. Both were then double clipped proximally and distally and divided with scissors. A small amount of bleeding was noted from the proximal stump of the cystic artery, this was clipped and a piece of Surgicel was placed on top of it. The gallbladder was dissected from the liver bed using hook cautery at high settings, and extracted from the peritoneal cavity with an Endobag through the epigastric port. The pneumoperitoneum was then re-established, the gallbladder fossa was examined and found to be free from blood or bile staining. The right upper quadrant was then irrigated with normal saline until clear. The epigastric fascial defect was closed with a [id number] 0 Vicryl suture, placed with a fascia closure device under direct visualization, and left untied. All instruments were removed, the CO2 pneumoperitoneum was released, and all the ports were removed. The epigastric fascial defect was closed with the previously placed [id number] 0 Vicryl suture, all skin incisions were closed with a 4-0 PDS running subcuticular suture, and Dermabond was applied. The patient tolerated the procedure well, was extubated, and transferred to the recovery room in satisfactory conditions.
[2020-05-09] MEDS ORDERED: TRAMADOL HCL 50 MG TABLET PO PRN (09:54)
[2020-05-09] MEDS ORDERED: (PENDING PHARMACY ID) (Losartan/Hydrochlorothiazide [Losartan-Hctz 50-12.5 Mg Tab] 1 TAB) PO SCH (10:00)
[2020-05-09] MEDS ORDERED: FAMOTIDINE INJ/PF 20 MG/2 ML SDV IV SCH (10:00)
[2020-05-09] MEDS: METOPROLOL TARTRATE 50 MG TABLET PO SCH ×2 (11:01→21:56)
[2020-05-09] MEDS: KETOROLAC TROMETHAMINE INJ/PF 30 MG/1 ML SDV IV PRN ×2 (11:19→18:24)
[2020-05-09] MEDS: ACETAMINOPHEN 1,000 MG/100 ML RTUPB IV SCH ×2 (12:28→17:49)
[2020-05-09] MEDS: LOSARTAN POTASSIUM 50 MG TABLET PO SCH (12:30)
[2020-05-09] MEDS: HYDROCHLOROTHIAZIDE 12.5 MG TABLET PO SCH (12:30)
--- NOTE | 2020-05-09 15:10 | RADIOLOGY REPORT (SQ) ---
EXAM DESCRIPTION: U/S ABDOMEN COMPLETE W/DOPPLER IMAGES COMPLETED DATE/TIME: 05/08/2020 10:59 am REASON FOR STUDY: ruq abd pain/radiating to chest/back COMPARISON: None. TECHNIQUE: Dynamic and static grayscale images acquired of the abdomen and recorded on PACS. Additio nal selected color Doppler and spectral images recorded. Note: Exam does not meet criteria for a complete duplex/doppler study LIMITATIONS: Study limited due to acoustical interference from fat or from air in the bowel. FINDINGS: PANCREAS: Poorly seen secondary to acoustical interference from fat or from air in the bow el. No visualized masses. Duct normal caliber as seen. LIVER: Fatty change. Sparing in the gallbladder fossa. LIVER VASCULATURE: Normal directional flow of the main portal vein and hepatic veins. GALLBLADDER: Echogenic wall with ring down artifact consistent with adenomyomatosis. Gallbladder wal l 5 mm. No pericholecystic fluid. ULTRASOUND-DETECTED GONZALEZ'S SIGN: Negative. INTRAHEPATIC DUCTS AND COMMON DUCT: CBD and intrahepatic ducts normal caliber. No filling defects. INFERIOR VENA CAVA: Normal flow. AORTA: No aneurysm. RIGHT KIDNEY: Normal size. Normal echogenicity. No solid or suspicious masses. No hydronephros is. No calcifications. LEFT KIDNEY: Normal size. 2 cm mid pole cyst. No solid or suspicious masses. No hydronephrosis . No calcifications. SPLEEN:Upper limits normal size. No focal lesions. PERITONEAL AND PLEURAL SPACES: No ascites or effusions. OTHER: No other significant finding. IMPRESSION: Adenomyomatosis. Suspected acalculous cholecystitis. TECHNICAL DOCUMENTATION: JOB ID: [id number] 2010 [employer]- All Rights Reserved Reading location - IP/workstation name: [email or web address]
[2020-05-09] MEDS ORDERED: ONDANSETRON 4 MG TAB.RAPDIS SL PRN (20:59)
[2020-05-09] MEDS ORDERED: IBUPROFEN 400 MG TABLET PO PRN ×2 (21:00→21:30)
[2020-05-09] MEDS: ACETAMINOPHEN 325 MG TABLET PO SCH (21:55)
[2020-05-09] MEDS: FAMOTIDINE 20 MG TABLET PO SCH (21:56)
[2020-05-10] MEDS: ACETAMINOPHEN 325 MG TABLET PO SCH ×2 (03:00→09:02)
[2020-05-10 05:34] LABS: ABSOLUTE BASOPHILS # (AUTO) 0.1 10^3/uL (0.0-0.2); ABSOLUTE EOSINOPHILS # (AUTO) 0.3 10^3/uL (0.0-0.6); ABSOLUTE LYMPHOCYTES (AUTO) 2.2 10^3/uL (0.5-4.7); ABSOLUTE MONOCYTES (AUTO) 0.6 10^3/uL (0.1-1.4); ABSOLUTE NEUT (AUTO) 6.7 10^3/uL (1.7-8.2); BASOPHILS % (AUTO) 1.1 % (0-2); EOSINOPHILS % (AUTO) 3.3 % (0-6); HEMATOCRIT 43.9 % (37.9-51.0); HEMOGLOBIN 15.1 g/dL (13.5-17.0); LYMPHOCYTES % (AUTO) 21.9 % (13-45); MEAN CORPUSCULAR HEMOGLOBIN 29.4 pg (27.0-33.4); MEAN CORPUSCULAR HGB CONC 34.4 g/dL (32.0-36.0); MEAN CORPUSCULAR VOLUME 86 fl (80-97); MONOCYTES % (AUTO) 6.5 % (3-13); PLATELET COUNT 254 10^3/uL (150-450); RED BLOOD COUNT 5.14 10^6/uL (4.35-5.55); RED CELL DISTRIBUTION WIDTH 13.5 % (11.5-14.0); SEGMENTED NEUTROPHILS % (AUTO) 67.2 % (42-78); TOTAL CELLS COUNTED % (AUTO) 100 %; WHITE BLOOD COUNT 9.9 10^3/uL (4.0-10.5)
[2020-05-10 06:05] LABS: ALBUMIN 4.2 g/dL (3.5-5.0); ALKALINE PHOSPHATASE 65 U/L (38-126); ANION GAP 8 (5-19); ASPARTATE AMINO TRANSFERASE 86 U/L (17-59); BILIRUBIN,DIRECT 0.4 mg/dL (0.0-0.4); BILIRUBIN,TOTAL 0.6 mg/dL (0.2-1.3); BLOOD UREA NITROGEN 14 mg/dL (7-20); CALCIUM 9.1 mg/dL (8.4-10.2); CARBON DIOXIDE 30 mmol/L (22-30); CHLORIDE 101 mmol/L (98-107); GLUCOSE 115 mg/dL (75-110); POTASSIUM 4.4 mmol/L (3.6-5.0); TOTAL PROTEIN 6.4 g/dL (6.3-8.2)
[2020-05-10] MEDS: FAMOTIDINE 20 MG TABLET PO SCH (09:03)
[2020-05-10] MEDS: METOPROLOL TARTRATE 50 MG TABLET PO SCH (09:03)
[2020-05-10] MEDS: LOSARTAN POTASSIUM 50 MG TABLET PO SCH (09:04)
[2020-05-10] MEDS: HYDROCHLOROTHIAZIDE 12.5 MG TABLET PO SCH (09:04)
[2020-05-10] MEDS ORDERED: CIPROFLOXACIN HCL 500 MG TABLET PO ONE (10:00)
[2020-05-10] MEDS ORDERED: DOCUSATE SODIUM 100 MG CAPSULE PO SCH (12:16)
--- NOTE | 2020-05-10 14:09 | PDOC PROGRESS REPORT ---
Subjective Progress Note for:: 05/10/20 Subjective:: No complaints Reason For Visit: ACUTE CALCULUS CHOLECYSTITIS, CHOLELITHIASIS, Physical Exam Vital Signs: Temp Pulse Resp BP Pulse Ox 97.3 F 49 L 21 H 170/97 H 99 05/10/20 11:36 05/10/20 11:36 05/10/20 11:36 05/10/20 07:42 05/10/20 11:36 Intake & Output 05/09/20 05/10/20 05/11/20 06:59 06:59 06:59 Intake Total 2864 4200 685 Output Total 1675 Balance 2864 2525 685 Weight 108 kg 115.9 kg General appearance: PRESENT: no acute distress, obese Respiratory exam: PRESENT: clear to auscultation krystal Cardiovascular exam: PRESENT: RRR GI/Abdominal exam: PRESENT: normal bowel sounds, soft, other - All incisions are clean, dry, and intact Results Laboratory Results: 05/10/20 04:55 05/10/20 04:55 05/10/20 05/10/20 04:55 04:55 WBC 9.9 RBC 5.14 Hgb 15.1 Hct 43.9 MCV 86 MCH 29.4 MCHC 34.4 RDW 13.5 Plt Count 254 Seg Neutrophils % 67.2 Sodium 139.4 Potassium 4.4 Chloride 101 Carbon Dioxide 30 Anion Gap 8 BUN 14 Creatinine 0.91 Est GFR ( Amer) > 60 Glucose 115 H Calcium 9.1 Total Bilirubin 0.6 AST 86 H Alkaline Phosphatase 65 Total Protein 6.4 Albumin 4.2 05/08/20 05/08/20 06:17 10:04 Troponin I < 0.012 < 0.012 NT-Pro-B Natriuret Pep 38 Impressions: Abdomen/Pelvis CT 05/08/20 00:00 IMPRESSION: Acute calculus cholecystitis with a 4 mm stone near the cystic duct. Fatty liver. TECHNICAL DOCUMENTATION: Quality ID # 436: Final reports with documentation of one or more dose reduction techniques (e.g., Automated exposure control, adjustment of the mA and/or kV according to patient size, use of iterative reconstruction technique) copyright 2011 [employer]- All Rights Reserved Chest X-Ray 05/08/20 06:20 IMPRESSION: 1. No acute pulmonary findings. Abdomen Ultrasound 05/08/20 06:54 IMPRESSION: Adenomyomatosis. Suspected acalculous cholecystitis. Assessment & Plan - Diagnosis (1) Acute calculous cholecystitis Is this a current diagnosis for this admission?: Yes - Time Anticipated Discharge Disposition: Home, Self Care Anticipated Discharge Timeframe: Today - Plan Summary Plan Summary: Assessment: Postoperative day #1 for laparoscopically cystectomy for acute cholecystitis with cholelithiasis Vital signs stable Blood work within normal limits Physical exam unremarkable Patient tolerated p.o. well Plan: Home today Follow-up with the surgery clinic in 2 weeks Follow-up with your primary care physician in 2 weeks Shower only for 2 weeks, then the patient can base Regular diet No wound care needed Tylenol only for pain as needed Resume home medications Resume work in 1 week, activities as tolerated, can drive, go up and down the stairs, patient perform activities without patient's
--- NOTE | 2020-05-10 14:15 | PDOC DISCHARGE SUMMARY ---
General - Admit/Disc Date/PCP Admission Date/Primary Care Provider: 05/08/20 11:56 Discharge Date: 05/10/20 - Discharge Diagnosis Final Diagnosis: Acute cholecystitis with cholelithiasis - Assessment Summary: Healthy 44-year-old male who presented emergency room with right upper quadrant pain on May 08, 2020, and ultrasound gallbladder was done revealing acute cholecystitis with cholelithiasis, his blood work is all within normal limits, he underwent surgery on May 09, 2020 for laparoscopic cholecystectomy. The procedure was uneventful, his postop course was unremarkable, on the day of discharge May 10, 2020 the patient is stable vital signs, tolerating p.o. well, physical exam unremarkable, all incisions clean dry intact, blood work within normal limits, pain minimal. Follow-up with the surgery clinic in 2 weeks Follow-up with your primary care physician in 2 weeks Shower only for 2 weeks, then the patient can base Regular diet No wound care needed Tylenol only for pain as needed Resume home medications Resume work in 1 week, activities as tolerated, can drive, go up and down the stairs, patient perform activities without patient's - Additional Information Resuscitation Status: Full Code Discharge Diet: Other (Comments) - Regular diet with low carbs Discharge Activity: Activity As Tolerated, No tub bath - Shower only for 2 weeks, then the patient can tablet base, Other - No wound care needed Referrals: [facility] [Provider Group] Prescriptions: Hydrochlorothiazide [Hydrodiuril 12.5 mg Tablet] 12.5 mg PO DAILY #30 tablet Home Medications: Losartan/Hydrochlorothiazide [Losartan-Hctz 50-12.5 mg Tab] 1 tab PO DAILY 05/08/20 Metoprolol Tartrate [Lopressor 50 mg Tablet] 50 mg PO Q12 05/08/20 Acetaminophen [Tylenol 325 mg Tablet] 650 mg PO Q6A tablet 05/10/20 Hydrochlorothiazide [Hydrodiuril 12.5 mg Tablet] 12.5 mg PO DAILY #30 tablet 05/10/20 Additional Information: Follow-up with the surgery clinic in 2 weeks Follow-up with your primary care physician in 2 weeks Shower only for 2 weeks, then the patient can base Regular diet No wound care needed Tylenol only for pain as needed Resume home medications Resume work in 1 week, activities as tolerated, can drive, go up and down the stairs, patient perform activities without patient's History of Present Illiness History of Present Illness: WALLACE RODRIGUEZ is a 44 year old male Physical Exam Vital Signs: Temp Pulse Resp BP Pulse Ox 97.3 F 49 L 21 H 170/97 H 99 05/10/20 11:36 05/10/20 11:36 05/10/20 11:36 05/10/20 07:42 05/10/20 11:36 Intake & Output 05/09/20 05/10/20 05/11/20 06:59 06:59 06:59 Intake Total 2864 4200 685 Output Total 1675 Balance 2864 1915 685 Weight 108 kg 115.9 kg Results Laboratory Results: WBC 9.9 10^3/uL (4.0-10.5) 05/10/20 04:55 RBC 5.14 10^6/uL (4.35-5.55) 05/10/20 04:55 Hgb 15.1 g/dL (13.5-17.0) 05/10/20 04:55 Hct 43.9 % (37.9-51.0) 05/10/20 04:55 MCV 86 fl (80-97) 05/10/20 04:55 MCH 29.4 pg (27.0-33.4) 05/10/20 04:55 MCHC 34.4 g/dL (32.0-36.0) 05/10/20 04:55 RDW 13.5 % (11.5-14.0) 05/10/20 04:55 Plt Count 254 10^3/uL (150-450) 05/10/20 04:55 Lymph % (Auto) 21.9 % (13-45) 05/10/20 04:55 Posey % (Auto) 6.5 % (3-13) 05/10/20 04:55 Eos % (Auto) 3.3 % (0-6) 05/10/20 04:55 Baso % (Auto) 1.1 % (0-2) 05/10/20 04:55 Absolute Neuts (auto) 6.7 10^3/uL (1.7-8.2) 05/10/20 04:55 Absolute Lymphs (auto) 2.2 10^3/uL (0.5-4.7) 05/10/20 04:55 Absolute Monos (auto) 0.6 10^3/uL (0.1-1.4) 05/10/20 04:55 Absolute Eos (auto) 0.3 10^3/uL (0.0-0.6) 05/10/20 04:55 Absolute Basos (auto) 0.1 10^3/uL (0.0-0.2) 05/10/20 04:55 Seg Neutrophils % 67.2 % (42-78) 05/10/20 04:55 Sodium 139.4 mmol/L (137-145) 05/10/20 04:55 Potassium 4.4 mmol/L (3.6-5.0) 05/10/20 04:55 Chloride 101 mmol/L (98-107) 05/10/20 04:55 Carbon Dioxide 30 mmol/L (22-30) 05/10/20 04:55 Anion Gap 8 (5-19) 05/10/20 04:55 BUN 14 mg/dL (7-20) 05/10/20 04:55 Creatinine 0.91 mg/dL (0.52-1.25) 05/10/20 04:55 Est GFR ( Amer) > 60 (>60) 05/10/20 04:55 Est GFR (MDRD) Non-Af > 60 (>60) 05/10/20 04:55 Glucose 115 mg/dL (75-110) H 05/10/20 04:55 Lactic Acid 1.1 mmol/L (0.7-2.1) 05/08/20 06:42 Calcium 9.1 mg/dL (8.4-10.2) 05/10/20 04:55 Total Bilirubin 0.6 mg/dL (0.2-1.3) 05/10/20 04:55 Direct Bilirubin 0.4 mg/dL (0.0-0.4) 05/10/20 04:55 Neonat Total Bilirubin Not Reportable 05/10/20 04:55 Neonat Direct Bilirubin Not Reportable 05/10/20 04:55 Neonat Indirect Bili Not Reportable 05/10/20 04:55 AST 86 U/L (17-59) H 05/10/20 04:55 ALT 139 U/L (<50) H 05/10/20 04:55 Alkaline Phosphatase 65 U/L (38-126) 05/10/20 04:55 Troponin I < 0.012 ng/mL 05/08/20 10:04 NT-Pro-B Natriuret Pep 38 pg/mL (<125) 05/08/20 06:17 Total Protein 6.4 g/dL (6.3-8.2) 05/10/20 04:55 Albumin 4.2 g/dL (3.5-5.0) 05/10/20 04:55 Amylase 50 U/L (30-110) 05/08/20 06:17 Lipase 100.6 U/L (23-300) 05/08/20 06:17 Urine Color YELLOW 05/08/20 10:04 Urine Appearance CLEAR 05/08/20 10:04 Urine pH 5.0 (5.0-9.0) 05/08/20 10:04 Ur Specific [place] 1.023 05/08/20 10:04 Urine Protein NEGATIVE mg/dL (NEGATIVE) 05/08/20 10:04 Urine Glucose (UA) NEGATIVE mg/dL (NEGATIVE) 05/08/20 10:04 Urine Ketones NEGATIVE mg/dL (NEGATIVE) 05/08/20 10:04 Urine Blood NEGATIVE (NEGATIVE) 05/08/20 10:04 Urine Nitrite NEGATIVE (NEGATIVE) 05/08/20 10:04 Urine Bilirubin NEGATIVE (NEGATIVE) 05/08/20 10:04 Urine Urobilinogen NEGATIVE mg/dL (<2.0) 05/08/20 10:04 Ur Leukocyte Esterase NEGATIVE (NEGATIVE) 05/08/20 10:04 Urine WBC (Auto) 2 /HPF 05/08/20 10:04 Urine RBC (Auto) 0 /HPF 05/08/20 10:04 Urine Mucus (Auto) FEW /LPF 05/08/20 10:04 Urine Ascorbic Acid NEGATIVE (NEGATIVE) 05/08/20 10:04 Urine Opiates Screen UNCONFIRMED POSITIVE 05/08/20 10:04 Urine Methadone Screen NEGATIVE 05/08/20 10:04 Ur Barbiturates Screen NEGATIVE 05/08/20 10:04 Ur Phencyclidine Scrn NEGATIVE 05/08/20 10:04 Ur Amphetamines Screen NEGATIVE 05/08/20 10:04 U Benzodiazepines Scrn NEGATIVE 05/08/20 10:04 Urine Cocaine Screen NEGATIVE 05/08/20 10:04 U Marijuana (THC) Screen NEGATIVE 05/08/20 10:04 SARS-CoV-2 (PCR) NEGATIVE (NEGATIVE) 05/08/20 20:35 05/08/20 05/08/20 06:17 10:04 Troponin I < 0.012 < 0.012 NT-Pro-B Natriuret Pep 38 Impressions: Abdomen/Pelvis CT 05/08/20 00:00 IMPRESSION: Acute calculus cholecystitis with a 4 mm stone near the cystic duct. Fatty liver. TECHNICAL DOCUMENTATION: Quality ID # 436: Final reports with documentation of one or more dose reduction techniques (e.g., Automated exposure control, adjustment of the mA and/or kV according to patient size, use of iterative reconstruction technique) copyright 2011 [employer]- All Rights Reserved Chest X-Ray 05/08/20 00:00 IMPRESSION: 1. No significant change 2. No focal infiltrates Chest X-Ray 05/08/20 06:20 IMPRESSION: 1. No acute pulmonary findings. Abdomen Ultrasound 05/08/20 06:54 IMPRESSION: Adenomyomatosis. Suspected acalculous cholecystitis.
[2020-05-10 14:20] VITALS: BP 138/62
== END 2020-05-10 14:58 | disposition home or self-care (01) ==
LOC: ER 06:08 → INTOOBSV 11:56 → EH 11:56 → 4S 13:40
PROVIDERS: ATTEND Surgery
DX: K80.10 Calculus of gallbladder with chronic cholecystitis without obstruction (principal); D13.5 Benign neoplasm of extrahepatic bile ducts; P59.1 Inspissated bile syndrome; Z03.818 Encounter for observation for suspected exposure to other biological agents ruled out; E66.9 Obesity, unspecified; I10 Essential (primary) hypertension; R00.1 Bradycardia, unspecified; Z87.891 Personal history of nicotine dependence; Z91.14 Patient's other noncompliance with medication regimen; Z79.899 Other long term (current) drug therapy
CPT/HCPCS: 47562; 93005; 99285; 96361; 96374; 96375; 36415 ×2; 82150; 83605; 83690; 85025 ×2; 80053 ×2; 81001; 84484; 80307; 83880; 88304 ×2; 71045; 76700; 93976; 74177; 94799; 93010; 00790; G0378 ×3; U0003; J2250; J3490 ×9; J1885 ×2; J3010; J2710; J1170; J0330; J2405 ×2; J7121; J7030; J7120; J2704; J0744 ×2; S0028; J0131; C9803; 790; 87635; J2270